=== PATIENT | female | born 1960 | race Caucasian/White ===

== ENCOUNTER 2017-07-28 11:18 | Emergency (ER) | payer OTHER ==
[2017-07-28 12:08] VITALS: BP 128/79
--- NOTE | 2017-07-28 12:39 | UC ---
Skin Complaint HPI - HPI Summary HPI Summary: 56 y/o female presents to the urgent care c/o red rash on the back of her LF lower leg s/p insect bite since yesterday. She has 3 other insect bites around the area, but are not infected. Pain is 2/10. Pt denies fever, SOB, chest pain, abdominal pain, N/V/D, Hx of MRSA. - History of Current Complaint Chief Complaint: UCSkin Time Seen by Provider: 07/28/17 12:13 Stated Complaint: LEFT LEG,SKIN COMPLAINT Hx Obtained From: Patient Hx Last Menstrual Period: menopausal ?: No Onset/Duration: Gradual Onset, Lasting Days - 1 day Skin Exposure Onset/Duration: Days Ago - 1 Timing: Constant Onset Severity: Mild Current Severity: Moderate Pain Intensity: 2 Pain Scale Used: 0-10 Numeric Location: Discrete - posterior side of LF lower leg Character: Swelling, Redness, Raised Aggravating Factor(s): Touch Alleviating Factor(s): Nothing Associated Signs & Symptoms: Positive: Tenderness. Negative: Fever Related History: Possible Reaction to: Insect - Allergy/Home Medications Allergies/Adverse Reactions: Allergies Allergy/AdvReac Type Severity Reaction Status Date / Time Penicillins Allergy Unknown Hives Verified 07/28/17 12:00 Home Medications: Home Medications traMADol TAB* [Ultram*] 50 mg PO Q6HR PRN 07/28/17 [History Confirmed 07/28/17] Review of Systems Constitutional: Negative Skin: Rash - in posterior side of LF lower leg Eyes: Negative ENT: Negative Respiratory: Negative Cardiovascular: Negative Gastrointestinal: Negative Genitourinary: Negative Motor: Negative Neurovascular: Negative Musculoskeletal: Negative Neurological: Negative Psychological: Negative Is Patient Immunocompromised?: No All Other Systems Reviewed And Are Negative: Yes PMH/Surg Hx/FS Hx/Imm Hx Previously Healthy: Yes Other Neurological History: Degenerative disc disease of lower spine - Surgical History Surgical History: Yes Surgery Procedure, Year, and Place: CSECTION - Family History Known Family History: Positive: Cardiac Disease, Diabetes - Social History Occupation: Employed Part-time Lives: With Family Alcohol Use: None Substance Use Type: None Smoking Status (MU): Former Smoker When Did the Patient Quit Smoking/Using Tobacco: 2010 Physical Exam Triage Information Reviewed: Yes Appearance: Well-Appearing, No Pain Distress, Well-Nourished, Obese Vital Signs: Initial Vital Signs Temp 97.5 F 07/28/17 12:01 Pulse 69 07/28/17 12:01 Resp 17 07/28/17 12:01 BP 128/79 07/28/17 12:01 Pulse Ox 100 07/28/17 12:01 Vital Signs Reviewed: Yes Eye Exam: Normal Eyes: Positive: Conjunctiva Clear - PERRLA< EOMI, fundi grossly normal ENT: Positive: Normal ENT inspection, Hearing grossly normal, Pharynx normal, TMs normal Neck: Positive: Supple, Nontender, No Lymphadenopathy Respiratory: Positive: Chest non-tender, Lungs clear, Normal breath sounds, No respiratory distress Cardiovascular: Positive: RRR, No Murmur, Pulses Normal, Brisk Capillary Refill Abdomen Description: Positive: Nontender, No Organomegaly, Soft. Negative: CVA Tenderness (R), CVA Tenderness (L) Bowel Sounds: Positive: Present Musculoskeletal: Positive: Strength Intact, ROM Intact, No Edema Neurological: Positive: Alert, Muscle Tone Normal Psychological Exam: Normal Skin: Positive: rashes - Positive erythematous patch with indistict borders in the posterior side of the left lower leg about [id number] in size. warm to touch midl induration in the central insect bite, no purulent drainage observed. mild tender to palpation Course/Dx - Course Course Of Treatment: 56 y/o female presents to the urgent care c/o red rash on the back of her LF lower leg s/p insect bite since yesterday. She has 3 other insect bites around the area, but are not infected. Pain is 2/10. Pt denies fever, SOB, chest pain, abdominal pain, N/V/D, Hx of MRSA. Hx obtained. Pt with cellulitis of the posterior side of LF lower leg on examination. Pt Rx Bactrim PO and topical Bacitracin oint. rash demarcated with a skin marker and Advised if rash doubles in size after 48hrs of ABX and if she develops fever to go to the ER for further treatment. Pt understood and agreed. - Differential Diagnoses - Skin Complaint Differential Diagnoses: Abscess, Cellulitis, Local Allergic Reaction, MRSA, Tick Born Illness, Urticaria - Diagnoses Provider Diagnoses: 1- Cellulitis of the posterior side of LF lower leg Discharge - Discharge Plan Condition: Stable Disposition: HOME Prescriptions: Bacitracin OINTMENT* 1 applic TOPICAL TID #1 tube Sulfamethox/Trimethoprim DS* [Bactrim DS 800/160 TAB*] 1 tab PO BID #20 tab Patient Education Materials: Cellulitis (ED) Referrals: ELMER Ramey [Primary Care Provider] - 2 Days Additional Instructions: 1-Please take full course of Antibiotic to avoid resistance. continue taking Tramadol PO for pain 2- If redness and swelling doubles in size beyond what was demarcated after 48 hrs of taking antibiotic and fever develops please go to the ER immediately. 3-Avoid standing for long periods of time or flexing your leg, keep it elevated 4-Please F/u with your PCP in 2 days for further evaluation and treatment.
== END 2017-07-28 12:47 | disposition home or self-care (01) ==
LOC: UCCORT 11:18
DX: L03.116 Cellulitis of left lower limb (principal); Z87.891 Personal history of nicotine dependence; Z86.14 Personal history of Methicillin resistant Staphylococcus aureus infection; Z88.0 Allergy status to penicillin; M51.36 Other intervertebral disc degeneration, lumbar region
CPT/HCPCS: 99202; G0463

== ENCOUNTER 2017-09-24 19:41 | Emergency (ER) | payer OTHER ==
[2017-09-24 20:04] VITALS: BP 119/65
--- NOTE | 2017-09-24 20:13 | UC ---
Throat Pain/Nasal Levi HPI - HPI Summary HPI Summary: SINUS PAIN AND PRESSURE X 5 DAYS COLD SX X 7 DAYS WITH NASAL CONGESTION , PND, COUGH NO FEVER, NO CHILLS - History of Current Complaint Chief Complaint: UCGeneralIllness Stated Complaint: COUGH/CONGESTION Time Seen by Provider: 09/24/17 19:54 Hx Obtained From: Patient Hx Last Menstrual Period: menopausal Onset/Duration: Gradual Onset, Lasting Weeks - 7, Still Present Severity: Moderate Cough: Productive Associated Signs & Symptoms: Positive: Sinus Discomfort, Nasal Discharge. Negative: Fever, Rash - Allergies/Home Medications Allergies/Adverse Reactions: Allergies Allergy/AdvReac Type Severity Reaction Status Date / Time Penicillins Allergy Unknown Hives Verified 09/24/17 20:04 PMH/Surg Hx/FS Hx/Imm Hx - Additional Past Medical History Additional PMH: CHRONIC BACK PAIN - Surgical History Surgical History: Yes Surgery Procedure, Year, and Place: CSECTION - Family History Known Family History: Positive: Cardiac Disease, Diabetes - Social History Alcohol Use: None Substance Use Type: None Smoking Status (MU): Former Smoker When Did the Patient Quit Smoking/Using Tobacco: 2010 - Immunization History Most Recent Influenza Vaccination: none Review of Systems Constitutional: Negative Skin: Negative Eyes: Negative ENT: Nasal Discharge, Sinus Congestion, Sinus Pain/Tenderness Respiratory: Cough Genitourinary: Negative Is Patient Immunocompromised?: No All Other Systems Reviewed And Are Negative: Yes Physical Exam Triage Information Reviewed: Yes Appearance: Well-Appearing, No Pain Distress, Well-Nourished Vital Signs: Initial Vital Signs Temp 98.6 F 09/24/17 20:00 Pulse 96 09/24/17 20:00 Resp 17 09/24/17 20:00 BP 119/65 09/24/17 20:00 Pulse Ox 97 09/24/17 20:00 Vital Signs Reviewed: Yes Eyes: Positive: Conjunctiva Clear ENT: Positive: Normal ENT inspection, Hearing grossly normal, Pharyngeal erythema, Nasal congestion, Nasal drainage, TMs normal, Sinus tenderness Neck exam: Normal Neck: Positive: Supple, Nontender, No Lymphadenopathy Respiratory: Positive: Chest non-tender, Lungs clear, Normal breath sounds Cardiovascular: Positive: RRR, No Murmur, Pulses Normal Throat Pain/Nasal Course/Dx - Differential Dx/Diagnosis Provider Diagnoses: SINUSITIS Discharge - Discharge Plan Condition: Stable Disposition: HOME Prescriptions: Azithromycin TAB* [Zithromax TAB (Z-EVERT) 250 mg #6 tabs] 2 tab PO .TODAY, THEN 1 DAILY #1 evert Fluticasone NASAL SPRAY 50MCG* [Flonase NASAL SPRAY 50MCG*] 2 spray BOTH NARES DAILY #1 btl Patient Education Materials: Sinusitis (ED) Referrals: ELMER Ramey [Primary Care Provider] - If Needed
== END 2017-09-24 20:17 | disposition home or self-care (01) ==
LOC: UCCORT 19:41
DX: J32.9 Chronic sinusitis, unspecified (principal); Z88.0 Allergy status to penicillin; Z87.891 Personal history of nicotine dependence
CPT/HCPCS: 99212; G0463

== ENCOUNTER 2018-04-18 12:23 | Emergency (ER) | payer OTHER ==
[2018-04-18 13:14] VITALS: BP 117/53
--- NOTE | 2018-04-18 13:14 | UC ---
Skin Complaint HPI - HPI Summary HPI Summary: 57 year old with skin complaint. After gardening one week ago, pruritic skin irritations that initially started on right arm and now have spread to face, arms, hands, and legs. Right arm is painful and with erythema. Patient has tried poison stephany spray and Benadryl cream that helps with itching only. Blisters on wrists and left leg. [ End ] - History of Current Complaint Time Seen by Provider: 04/18/18 13:10 Stated Complaint: SKIN COMPLAINT Hx Obtained From: Patient Hx Last Menstrual Period: menopausal Onset/Duration: Gradual Onset Onset Severity: Mild Current Severity: Moderate Aggravating Factor(s): Touch Alleviating Factor(s): OTC Meds, Antihistamines Associated Signs & Symptoms: Positive: Negative, Drainage, Tenderness Related History: Possible Reaction to: Environmental Exposure - Allergy/Home Medications Allergies/Adverse Reactions: Allergies Allergy/AdvReac Type Severity Reaction Status Date / Time bee venom protein (honey bee) Allergy Swelling Verified 04/18/18 13:09 Penicillins Allergy Hives Verified 04/18/18 13:09 Home Medications: Home Medications Ibuprofen TAB* [Advil TAB*] 600 mg PO Q6H PRN 04/18/18 [History Confirmed ] Menthol/Camphor/Benzyl Alcohol [Poison Stephany Treatment 10-0.5-0.25 %] 1 spr EX SEE INSTRUCTIONS PRN 04/18/18 [History Confirmed 04/18/18] diPHENhydraMINE 2% CREAM(NF) [Benadryl 2% CREAM (NF)] 1 applic TOPICAL SEE INSTRUCTIONS PRN 04/18/18 [History Confirmed 04/18/18] Review of Systems Skin: Rash Is Patient Immunocompromised?: No All Other Systems Reviewed And Are Negative: Yes PMH/Surg Hx/FS Hx/Imm Hx Previously Healthy: Yes - Surgical History Surgical History: Yes Surgery Procedure, Year, and Place: CSECTION - Family History Known Family History: Positive: Cardiac Disease, Diabetes - Social History Occupation: Employed Full-time Lives: With Family Alcohol Use: None Substance Use Type: None Smoking Status (MU): Former Smoker When Did the Patient Quit Smoking/Using Tobacco: 2010 - Immunization History Most Recent Influenza Vaccination: none Physical Exam Triage Information Reviewed: Yes Appearance: Well-Appearing, No Pain Distress, Well-Nourished Vital Signs Reviewed: Yes Eyes: Positive: Conjunctiva Inflamed ENT: Positive: Hearing grossly normal Neck: Positive: 1 Respiratory Exam: Normal Cardiovascular Exam: Normal Musculoskeletal Exam: Normal Neurological Exam: Normal Psychological Exam: Normal Skin Exam: Normal Skin: Positive: rashes - papulo vesicular lesions on the RUQ, linear vesivular lesion left wrist, left ankle with vesicular lesions as well as healing crustedlesions on the left lateral neck and cheek. Course/Dx - Course Course Of Treatment: cont with OTC antihistamines, start medrol and steroid cream. do not itch. ifr appears infected then RTO for further eval - Diagnoses Provider Diagnoses: Poison stephany / contact dermatitis Discharge - Sign-Out/Discharge Documenting (check all that apply): Discharge/Admit/Transfer - Discharge Plan Condition: Good Disposition: HOME Prescriptions: methylPREDNISolone [Medrol Dosepak 4 MG*] 0 mg PO .SEE EVERT INSTRUCTION #1 tab Triamcinolone 0.025% OINT * 1 applic TOPICAL TID #1 tube Patient Education Materials: Poison Stephany (ED) Referrals: Jack Chaidez [Primary Care Provider] - 4 Days (if any concerns ) - Billing Disposition and Condition Condition: GOOD Disposition: Home
== END 2018-04-18 13:40 | disposition home or self-care (01) ==
LOC: UCCORT 12:23
DX: L23.7 Allergic contact dermatitis due to plants, except food (principal); T63.791A Toxic effect of contact with other venomous plant, accidental (unintentional), initial encounter; Y92.007 Garden or yard of unspecified non-institutional (private) residence as the place of occurrence of the external cause; Z88.0 Allergy status to penicillin; Z87.891 Personal history of nicotine dependence
CPT/HCPCS: 99212; G0463